=== PATIENT | female | born 1970 | race Caucasian/White ===

== ENCOUNTER 2016-08-10 02:50 | Emergency (ER) | payer MEDICAID, OTHER, SELFPAY ==
[2016-08-10 03:20] VITALS: TEMP 98.8
[2016-08-10 03:33] LABS: HCG,QUALITATIVE URINE NEGATIVE (NEGATIVE)
[2016-08-10 03:35] LABS: URINE COLOR Straw (YELLOW)
[2016-08-10 03:36] LABS: SQUAMOUS EPITHIAL 6 /hpf (0-5); URINE BILIRUBIN NEGATIVE (NEGATIVE); URINE CLARITY Hazy (Clear); URINE GLUCOSE (UA) NORMAL (Normal); URINE LEUKOCYTE ESTERASE 2+ Leu/uL (Negative); URINE NITRATE NEGATIVE (NEGATIVE); URINE PROTEIN NEGATIVE (NEGATIVE); URINE UROBILINOGEN NORMAL mg/dL (0.2-1.0)
[2016-08-10 03:44] LABS: URINE BLOOD NEGATIVE (NEGATIVE)
--- NOTE | 2016-08-10 03:44 | C.PDOC ---
History Of Present Illness <Gunjan Tejada - Last Filed: 08/10/16 06:30> <Jasmyn Lassiter - Last Filed: 08/18/16 04:22> 45 year old female with a history of sciatica presents to the ED with complaints of left intermittent flank pain that woke her a few hours ago with nausea. Patient states the pain radiates to her left lower quadrant. She notes taking excedrin with no improvement. Patient denies urinary symptoms, fever and chills. (Gunjan Tejada) History Per: Patient History/Exam Limitations: no limitations Onset/Duration Of Symptoms: Hrs, Intermittent Episodes Current Symptoms Are (Timing): Still Present Quality Of Discomfort: "Pain" Associated Symptoms: Other (nausea and pain radiates to LLQ ) Recent travel outside of the [place]: No <Gunjan Tejada - Last Filed: 08/10/16 06:30> <Jasmyn Lassiter - Last Filed: 08/18/16 04:22> Time Seen by Provider: 08/10/16 03:21 Chief Complaint (Nursing): Back Pain Past Medical History Reviewed: Historical Data, Nursing Documentation, Vital Signs Family History: States: Unknown Family Hx - Social History Hx Tobacco Use: No Hx Alcohol Use: No Hx Substance Use: No - Immunization History Hx Tetanus Toxoid Vaccination: No Hx Influenza Vaccination: No Hx Pneumococcal Vaccination: No <Gunjan Tejada - Last Filed: 08/10/16 06:30> Review Of Systems Constitutional: Negative for: Fever, Chills Gastrointestinal: Positive for: Nausea, Abdominal Pain (left flank pain radiates to LLQ ). Negative for: Vomiting, Diarrhea Genitourinary: Negative for: Dysuria, Hematuria <Gunjan Tejada - Last Filed: 08/10/16 06:30> Physical Exam <Gunjan Tejada - Last Filed: 08/10/16 06:30> <Jasmyn Lassiter - Last Filed: 08/18/16 04:22> - Physical Exam Additional Physical Exam Comments: Constitutional: No acute distress. WDWN. Patient appears uncomfortable. Head: Normocephalic. Atraumatic. Eyes: PERRL. EOMI. ENT: Moist mucous membranes. Neck: Supple. Cardiovascular: Regular rate and rhythm. Chest: No tenderness. Respiratory: Clear to auscultation bilaterally. GI: Soft. Left lower quardrant tenderness. Nondistended. Normoactive bowel sounds. No rebound. No guarding. Back: Left CVA tenderness. No mid-line tenderness. Musculoskeletal: No tenderness or swelling of extremities. Skin: No rash. Neurologic: Alert, no focal deficit. (Gunjan Tejada) ED Course And Treatment - Laboratory Results Result Diagrams: 08/10/16 04:07 08/10/16 04:07 O2 Sat by Pulse Oximetry: 100 - CT Scan/US CT Abdomen and Pelvis Without Intravenous Contrast Other Rad Studies (CT/US): Read By Radiologist, Radiology Report Reviewed CT/US Interpretation: IMPRESSION: 1. No infiltrate or atelectasis posterior lungs. 2. Hydronephrosis left kidney due to an obstructing 1 cm stone in the left UPJ. 3. Mild fecal retention right colon and distal ileum consistent with constipation. <Gunjan Tejada - Last Filed: 08/10/16 06:30> - Laboratory Results Result Diagrams: 08/10/16 04:07 08/10/16 04:07 <Jasmyn Lassiter - Last Filed: 08/18/16 04:22> Medical Decision Making <Gunjan Tejada - Last Filed: 08/10/16 06:30> <Jasmyn Lassiter - Last Filed: 08/18/16 04:22> Medical Decision Making: pt with sudden onset flank pain that radiates to llq, likely kidney stone. ( Gunjan Tejada) Disposition Counseled Patient/Family Regarding: Studies Performed, Diagnosis, Need For Followup, Rx Given - Disposition Disposition Time: 06:30 <Gunjan Tejada - Last Filed: 08/10/16 06:30> <Jasmyn Lassiter - Last Filed: 08/18/16 04:22> - Disposition Referrals: [facility] [Outside] [facility] [Outside] Clinic,Med Surg [Primary Care Provider] - Maximo Maguire MD [Staff Provider] - Disposition: HOME/ ROUTINE Condition: IMPROVED Additional Instructions: [place] los antibiticos y el ibuprofeno segn lo prescrito. Beber mayores cantidades de agua. Seguimiento con clnica mdica y con urlogo. Colar toda la orina; Guarda la gerard cuando pasa para llevar al urlogo contigo. Vuelva a ER para un dolor peor o cualquier otro sntoma que lo conceda. [place] Miralax para el estreimiento. Prescriptions: Docusate Sodium [Colace] 100 mg PO BID #40 capsule Ibuprofen [Motrin] 600 mg PO TID #30 tab Nitrofurantoin Macrocrystals [Macrobid] 100 mg PO BID #14 cap Instructions: Kidney Stones (ED), Urinary Tract Infection in Women (ED), How to Strain Your Urine (ED) Forms: Gen Discharge Inst Indian Print Language: MAORI - Clinical Impression Clinical Impression: Kidney stone on left side, Urinary tract infection, Constipation - Scribe Statement The provider has reviewed the documentation as recorded by the Scribe <Gunjan Tejada - Last Filed: 08/10/16 06:30> <Jasmyn Lassiter - Last Filed: 08/18/16 04:22> - Scribe Statement Sandra Finley All medical record entries made by the Scribe were at my direction and personally dictated by me. I have reviewed the chart and agree that the record accurately reflects my personal performance of the history, physical exam, medical decision making, and the department course for this patient. I have also personally directed, reviewed, and agree with the discharge instructions and disposition. (Gunjan Tejada)
[2016-08-10] MEDS ORDERED: Sodium Chloride 0.9% 1,000 ML IV SCH (03:45)
[2016-08-10] MEDS ORDERED: Sodium Chloride 0.9% 1,000 ML ONE (04:05)
[2016-08-10 04:13] LABS: MEAN PLATELET VOLUME 8.5 fL (7.2-11.7); MONO # 0.1 K/uL (0.0-0.8); RBC 4.65 Mil/uL (3.80-5.20)
[2016-08-10 04:17] LABS: ALBUMIN 3.9 g/dL (3.5-5.0)
[2016-08-10 04:19] LABS: BASO % 0.3 % (0.0-2.0); EOS # 0.1 K/uL (0.0-0.7); EOS % 0.6 % (0.0-4.0); HEMOGLOBIN 11.2 g/dL (11.0-16.0); LYMPH # 1.3 K/uL (1.0-4.3); LYMPH % 10.7 % (20.0-40.0); MEAN CELL VOLUME 75.5 fL (81.0-99.0); MEAN CORPUSCULAR HEMOGLOBIN 24.1 pg (27.0-31.0); MEAN CORPUSCULAR HGB CONC 31.9 g/dL (33.0-37.0); NEUT % 87.4 % (50.0-75.0); RED CELL DISTRIBUTION WIDTH 17.6 % (11.5-14.5); WHITE BLOOD COUNT 12.6 K/uL (4.8-10.8)
[2016-08-10 04:20] LABS: ALT/SGPT 20 U/L (9-52); AST/SGOT 19 U/L (14-36); BLOOD UREA NITROGEN 12 mg/dL (7-17); GFR AFRICAN-AMERICAN > 60; GFR NON-AFRICAN AMERICAN > 60
[2016-08-10 04:21] LABS: LIPASE 107 U/L (23-300)
[2016-08-10 06:08] VITALS: BP 107/70; PULSE 90; RESP 20
[2016-08-10 06:09] VITALS: O2SAT 100
--- NOTE | 2016-08-10 09:16 | CT ---
PROCEDURE: CT Abdomen and Pelvis without intravenous contrast HISTORY: left flank pain and hematuria COMPARISON: None. TECHNIQUE: Multiple contiguous axial images were performed through the abdomen and pelvis without the use of intravenous contrast. Subsequently, sagittal and coronal reformatted images were obtained. Radiation dose: Total exam DLP = 379 mGy-cm. This CT exam was performed using one or more of the following dose reduction techniques: Automated exposure control, adjustment of the mA and/or kV according to patient size, and/or use of iterative reconstruction technique. FINDINGS: LOWER THORAX: Atelectasis at the lung bases. 3 millimeter fissural nodule in the right lung on series 3, image 6. 2 millimeter nodule/granuloma within the right middle lobe. LIVER: Unremarkable. No gross lesion or ductal dilatation. GALLBLADDER AND BILE DUCTS: Unremarkable. PANCREAS: Unremarkable. No gross lesion or ductal dilatation. SPLEEN: Unremarkable. ADRENALS: Unremarkable. No mass. KIDNEYS AND URETERS: Hydronephrosis of the left kidney secondary to an obstructing 1 centimeter calculus in the left ureteropelvic junction. Additional 7 millimeter lower pole and 6 millimeter midpole nonobstructive calculi. Mild perinephric fluid and fat stranding. 1.2 centimeter upper pole hypoattenuated lesion in the right kidney demonstrating a Hounsfield unit attenuation of 16, indeterminate, possibly a cyst. Question small exophytic hypoattenuated lesion off the upper pole of the left kidney, too small to adequately characterize. VASCULATURE: Unremarkable. No aortic aneurysm. BOWEL: Mild fecal retention in the right hemicolon and distal ileum consistent with constipation. APPENDIX: No findings to suggest acute appendicitis. PERITONEUM: Unremarkable. No free fluid. No free air. LYMPH NODES: Few shotty para-aortic and inguinal lymph nodes. Few shotty mesenteric lymph nodes. BLADDER: Unremarkable. REPRODUCTIVE: Unremarkable. BONES: Degenerative changes in the spine. OTHER FINDINGS: None. IMPRESSION: Hydronephrosis of the left kidney secondary to an obstructing 1 centimeter calculus in the left ureteropelvic junction. Additional left renal calculi as described above. Mild fecal retention in the right colon and distal ileum consistent with constipation. Additional findings as above. These findings were preliminarily reported at 5:38 a.m. on 08/10/[address] Edgar Wallace from [employer] ([place]).
== END 2016-08-10 06:46 | disposition home or self-care (01) ==
LOC: C.ER 02:50 → SUPCPDRO 02:50 → C.ER 06:46
DX: N13.2 Hydronephrosis with renal and ureteral calculous obstruction (principal); N39.0 Urinary tract infection, site not specified; K59.00 Constipation, unspecified
CPT/HCPCS: 74176; 80053; 81001; 83690; 84703; 85025; 96374; 99284; J1885; J7040

== ENCOUNTER 2016-08-12 19:22 | Inpatient (IN) | payer MEDICAID ==
--- NOTE | 2016-08-12 19:52 | C.PDOC ---
History Of Present Illness Patient presents to ED c/o left flank pain radiating to abdomen since monday. Patient seen in ED monday, diagnosed with kidney stone and UTI, discharged home with meds. Patient states pain has not improved and she has been having intermittent fever & chills since monday. She denies chest pain, SOB, vomiting/diarrhea. Admits to occasional dysuria. Time Seen by Provider: 08/12/16 19:33 Chief Complaint (Nursing): Abdominal Pain History Per: Patient History/Exam Limitations: no limitations Onset/Duration Of Symptoms: Days Current Symptoms Are (Timing): Still Present Severity: Moderate Location Of Pain/Discomfort: Other (left flank) Radiation Of Pain To:: Other (left abdomen) Quality Of Discomfort: "Pain" Associated Symptoms: Fever, Chills, Nausea, Urinary Symptoms Abnormal Vaginal Bleeding: No Past Medical History Reviewed: Historical Data, Nursing Documentation, Vital Signs Vital Signs: Last Vital Signs Temp 98 F 08/17/16 12:00 Pulse 72 08/17/16 12:00 Resp 19 08/17/16 12:00 BP 108/65 08/17/16 12:00 Pulse Ox 100 08/17/16 12:00 - Medical History PMH: Back Problems - [facility] Procedures APPLICATION OF SPLINT (12/23/13) Family History: States: No Known Family Hx - Social History Hx Tobacco Use: No Hx Alcohol Use: No Hx Substance Use: No - Immunization History Hx Tetanus Toxoid Vaccination: No Hx Influenza Vaccination: No Hx Pneumococcal Vaccination: No Review Of Systems Except As Marked, All Systems Reviewed And Found Negative. Constitutional: Positive for: Fever, Chills Cardiovascular: Negative for: Chest Pain, Palpitations Respiratory: Negative for: Cough, Shortness of Breath Gastrointestinal: Positive for: Nausea, Abdominal Pain, Other (left flank pain ) . Negative for: Vomiting, Diarrhea Genitourinary: Positive for: Dysuria Skin: Negative for: Rash Physical Exam - Physical Exam Appears: Non-toxic, In Acute Distress (in mild to moderate pain) Skin: Normal Color, Warm, Dry Oral Mucosa: Moist Cardiovascular: Rhythm Regular (tachycardic ) Respiratory: Normal Breath Sounds, No Rales, No Rhonchi, No Wheezing Gastrointestinal/Abdominal: Bowel Sounds, Soft, No Tenderness (L periumbilical/ LLLQ mild TTP) Back: CVA Tenderness (left) Neurological/Psych: Oriented x3 ED Course And Treatment - Laboratory Results Result Diagrams: 08/15/16 12:49 08/15/16 12:49 O2 Sat by Pulse Oximetry: 95 (RA) Pulse Ox Interpretation: Normal Progress Note: Blood work, UA, KUB ordered and reviewed. Patient given IV NS bolus, IV Toradol and IV rocephin. Prior CT scan reviewed - (+) 1cm obstructing stone left sided with hydronephrosis. Patient also had mild UTI, was discharged with macrobid. - Physician Consult Information Physician Contacted: Maximo Maguire Outcome Of Conversation: Discussed patient with Dr. Maguire, agrees with admission to his service for fever, pyelonephritis, kidney stone, hydronephrosis. Disposition - Disposition Disposition: HOSPITALIZED Disposition Time: 20:52 Condition: STABLE - Clinical Impression Clinical Impression: Urinary tract obstruction by kidney stone, Fever, Pyelonephritis, Hydronephrosis Decision To Admit - Pt Status Changed To: Hospital Disposition Of: Inpatient - Admit Certification Admit to Inpatient:: After my assessment, the patient will require hospitalization for at least two midnights. This is because of the severity of symptoms shown, intensity of services needed, and/or the medical risk in this patient being treated as an outpatient. - InPatient: Physician Admission Certification:: see notes - . Bed Request Type: Regular Admitting Physician: Maximo Maguire Patient Diagnosis: Urinary tract obstruction by kidney stone, Fever, Pyelonephritis, Hydronephrosis
[2016-08-12 20:06] LABS: HCG,QUALITATIVE URINE NEGATIVE (NEGATIVE); SQUAMOUS EPITHIAL 19 /hpf (0-5); URINE BACTERIA OCC (<OCC); URINE BILIRUBIN NEGATIVE (NEGATIVE); URINE BLOOD 2+ (NEGATIVE); URINE CLARITY Hazy (Clear); URINE COLOR Yellow (YELLOW); URINE GLUCOSE (UA) NORMAL (Normal); URINE LEUKOCYTE ESTERASE 1+ Leu/uL (Negative); URINE NITRATE NEGATIVE (NEGATIVE); URINE PROTEIN 2+ mg/dL (NEGATIVE)
[2016-08-12 20:06] LABS: BASO % 0.3 % (0.0-2.0); EOS % 0.1 % (0.0-4.0); HEMOGLOBIN 10.7 g/dL (11.0-16.0); LYMPH # 0.8 K/uL (1.0-4.3); LYMPH % 6.5 % (20.0-40.0); MEAN CORPUSCULAR HEMOGLOBIN 23.5 pg (27.0-31.0); MEAN PLATELET VOLUME 8.2 fL (7.2-11.7); MONO # 0.5 K/uL (0.0-0.8); MONO % 4.3 % (0.0-10.0); NEUT # 10.9 K/uL (1.8-7.0); NEUT % 88.8 % (50.0-75.0); RBC 4.55 Mil/uL (3.80-5.20); RED CELL DISTRIBUTION WIDTH 17.6 % (11.5-14.5); WHITE BLOOD COUNT 12.2 K/uL (4.8-10.8)
[2016-08-12 20:08] LABS: MEAN CELL VOLUME 73.3 fL (81.0-99.0); PLATELET COUNT 209 K/uL (130-400)
[2016-08-12] MEDS ORDERED: cefTRIAXone IV 1 gm in Dextros 50 ML IVPB ONE (20:08)
[2016-08-12 20:14] LABS: ALBUMIN 3.5 g/dL (3.5-5.0)
[2016-08-12 20:17] LABS: ALB/GLOB RATIO 0.8 (1.0-2.1); CALCIUM 8.5 mg/dl (8.6-10.4)
[2016-08-12 20:25] LABS: VENOUS BLOOD GAS PCO2 25 mmHg (40-60); VENOUS BLOOD GAS PO2 34 mm/Hg (30-55); VENOUS BLOOD PH 7.43 (7.32-7.43)
[2016-08-12 20:41] LABS: BANDS 3 % (0-2); LYMPHOCYTE 5 % (20-40); MONOCYTE 3 % (0-10); NEUTROPHIL 89 % (50-75); TOTAL CELLS COUNTED 100
[2016-08-12 20:42] LABS: ANISOCYTOSIS SLIGHT; MICROCYTOSIS SLIGHT; PLATELET ESTIMATE NORMAL (NORMAL)
[2016-08-13] MEDS: Potassium Chloride 20 mEq ER Tab PO SCH ×2 (02:30→03:36)
--- NOTE | 2016-08-13 10:55 | RAD ---
HISTORY: KUB FOR KIDNEY STONE COMPARISON: No prior. FINDINGS: Examination is severely limited as bilateral renal silhouette are obscured by bowel gas and fecal material. BOWEL: There is large amount of stool in the right hemicolon. Gas filled bowel loops are noted in the left abdomen. BONES: Normal. OTHER FINDINGS: None. IMPRESSION: Suboptimal diagnostic quality and bilateral renal silhouette are obscured by bowel gas and recall material.
[2016-08-13 12:35] LABS: BASO % 0.4 % (0.0-2.0); EOS % 0.3 % (0.0-4.0); HEMOGLOBIN 11.2 g/dL (11.0-16.0); LYMPH # 1.2 K/uL (1.0-4.3); LYMPH % 18.4 % (20.0-40.0); MEAN CELL VOLUME 75.4 fL (81.0-99.0); MEAN CORPUSCULAR HEMOGLOBIN 24.1 pg (27.0-31.0); MEAN CORPUSCULAR HGB CONC 31.9 g/dL (33.0-37.0); MEAN PLATELET VOLUME 8.6 fL (7.2-11.7); MONO # 0.3 K/uL (0.0-0.8); MONO % 3.9 % (0.0-10.0); NEUT # 5.2 K/uL (1.8-7.0); NRBC % 0.1 % (0.0-2.0); RBC 4.67 Mil/uL (3.80-5.20); RED CELL DISTRIBUTION WIDTH 17.8 % (11.5-14.5); WHITE BLOOD COUNT 6.7 K/uL (4.8-10.8)
[2016-08-13] MEDS ORDERED: Vancomycin 1 gm/NS 200 ml 1 GM/200 ML BAG IVPB STA (12:41)
[2016-08-13 12:46] LABS: ALBUMIN 3.8 g/dL (3.5-5.0)
[2016-08-13 12:49] LABS: ALB/GLOB RATIO 0.8 (1.0-2.1)
[2016-08-13 12:50] LABS: CALCIUM 8.7 mg/dl (8.6-10.4)
[2016-08-13] MEDS ORDERED: Propofol 10 mg/ml Inj (20 ML) ONE (13:41)
[2016-08-13] MEDS ORDERED: Midazolam 2 MG/2 ML VIAL ONE (13:41)
[2016-08-13] MEDS ORDERED: Sodium Chloride 0.9% 1,000 ML IV SCH ×2 (13:45→21:15)
[2016-08-13] MEDS ORDERED: Lactated Ringer's 1,000 ML IV ONE (14:14)
[2016-08-13] MEDS ORDERED: HYDROmorphone 0.5 mg/0.5 ml ISec IVP PRN (14:25)
[2016-08-13] MEDS ORDERED: Sodium Chloride 0.9% 1,000 ML IV ONE (15:15)
--- NOTE | 2016-08-13 20:14 | RAD ---
HISTORY: LEFT HYDRONEPHROSIS COMPARISON: No prior. FINDINGS: BOWEL: There are gas-filled small bowel loops in the mid abdomen. No evidence of bowel dilatation or obstruction. BONES: Normal. OTHER FINDINGS: None. IMPRESSION: Gas-filled normal caliber small bowel loops in the mid abdomen. No evidence of bowel obstruction.
[2016-08-13 21:19] LABS: MAGNESIUM 2.1 mg/dL (1.6-2.3)
[2016-08-14 06:29] LABS: HEMOGLOBIN 9.5 g/dL (11.0-16.0); MEAN CORPUSCULAR HEMOGLOBIN 24.1 pg (27.0-31.0); MEAN CORPUSCULAR HGB CONC 32.1 g/dL (33.0-37.0); MEAN PLATELET VOLUME 9.1 fL (7.2-11.7); RBC 3.93 Mil/uL (3.80-5.20); RED CELL DISTRIBUTION WIDTH 18.3 % (11.5-14.5); WHITE BLOOD COUNT 9.8 K/uL (4.8-10.8)
[2016-08-14 06:50] LABS: ALBUMIN 2.8 g/dL (3.5-5.0)
[2016-08-14 06:53] LABS: ALB/GLOB RATIO 0.8 (1.0-2.1); AST/SGOT 21 U/L (14-36); GFR AFRICAN-AMERICAN > 60; GFR NON-AFRICAN AMERICAN > 60
[2016-08-14 06:54] LABS: ALT/SGPT 20 U/L (9-52); BLOOD UREA NITROGEN 12 mg/dL (7-17); CALCIUM 7.6 mg/dl (8.6-10.4); MAGNESIUM 1.9 mg/dL (1.6-2.3)
--- NOTE | 2016-08-14 08:58 | CP.PCM.CON ---
History of Present Illness - History of Present Illness History of Present Illness: 3 Consult note Patient name: Vanessa Cardona [id number] Date of consult 08/13/2016 Chief complaint: Fevers chills History present illness: 45-year-old female with a history of hyperlipidemia, prediabetic came to the emergency room yesterday with the abdominal pain. Patient was sent home. At the time patient was noted to have renal colic. Patient admitted again with the worsening abdominal pain, and also nausea fever chills. Patient was admitted to the medical floor initially, she developed a very high fever, chills, and also noted to have a 1 cm renal calculi need a surgical intervention. Following the rapid response this morning, patient underwent is urgent cystoscopy, and urethral stenting Postoperatively patient needed ICU management. She again developed a very high fever during the postoperative to PACU. Patient is also hypertensive. Denies any chest pain, no shortness of breath noted, currently awake and responding Past medical history: Hypertension negative, prediabetic, hypercholesteremia and the sciatica Allergy: No known drug allergy Consult note Patient name: Vanessa Cardona [id number] Date of consult 08/13/2016 Personal history: Nonsmoker nonalcoholic currently working Family history noncontributory Review of system: Patient is currently having some headache, nausea noted, vomiting and chills noted. Abdominal pain present. Patient postoperatively chills present. Carbajal catheter inserted, urine output is better Past surgical history none Vital signs reviewed No neck vein distention noted Chest good air entry bilaterally, no wheezing or rales noted CVS regular heart sound, no murmur noted Abdomen soft, nontender. Extremities no pedal edema FREELANCE DIRECTOR alert awake oriented 3, no functional neurological deficit Carbajal catheter is draining urine Consult note Patient name: Vanessa Cardona [id number] Date of consult 08/13/2016 Labs reviewed Elevated WBC noted, minimal blood in the urine noted. Chest x-ray nonspecific. CT of the abdomen and pelvis showing evidence of renal colic, status post a urethral stent now Assessment and recommendation: 45-year-old female admitted with the severe sepsis, and high fever, secondary to ureteral obstruction secondary to renal colic AP Currently improving. Doing well at this time. Well continue to monitor the patient. Well follow the patient. IV hydration, IV fluid management. Antibiotic imipenem. Spoke to the urologist. And will follow the patient Past Patient History - Infectious Disease Hx of Infectious Diseases: None - Past Medical History & Family History Past Medical History?: No - Past Social History Smoking Status: Never Smoked - ENDOCRINE/METABOLIC Other/Comment: pre diabetics - MUSCULOSKELETAL/RHEUMATOLOGICAL Hx Falls: No - GENITOURINARY/GYNECOLOGICAL Other/Comment: kidney stones - PSYCHIATRIC Hx Substance Use: No - SURGICAL HISTORY Hx Surgeries: No - ANESTHESIA Hx Anesthesia: No Meds Allergies/Adverse Reactions: Allergies Allergy/AdvReac Type Severity Reaction Status Date / Time No Known Allergies Allergy Verified 12/23/13 12:54 - Medications Medications: Current Medications Famotidine (Pepcid) 20 mg IVP Q12 [facility] Last Admin: 08/13/16 21:39 Dose: 20 mg Heparin Sodium (Porcine) (Heparin) 5,000 units SC Q12 [facility] Last Admin: 08/13/16 21:39 Dose: 5,000 units Vancomycin/Sodium Chloride (Vancocin) 1 gm in 200 mls @ 66.667 mls/hr IVPB Q24H [facility] Stop: 08/19/16 14:01 Imipenem/Cilastatin Sodium 500 (mg/ Sodium Chloride) 100 mls @ 100 mls/hr IV Q6H [facility] Last Admin: 08/14/16 05:40 Dose: 100 mls/hr Sodium Chloride (Sodium Chloride 0.9%) 1,000 mls @ 250 mls/hr IV .Q4H [facility] Last Admin: 08/13/16 21:40 Dose: 250 mls/hr Ketorolac Tromethamine (Toradol) 30 mg IVP Q8H PRN PRN Reason: Pain, moderate (4-7) Morphine Sulfate (Morphine) 4 mg IVP Q4 PRN PRN Reason: pain Last Admin: 08/13/16 03:27 Dose: 4 mg Ondansetron HCl (Zofran Inj) 4 mg IVP Q8H PRN PRN Reason: Nausea/Vomiting Potassium Chloride (K-Dur 20 Meq Er Tab) 40 meq PO ONCE DANA Last Admin: 08/13/16 02:30 Dose: 40 meq Results - Vital Signs Recent Vital Signs: Last Vital Signs Temp 97.7 F 08/14/16 08:00 Pulse 76 08/14/16 08:50 Resp 17 08/14/16 08:50 BP 98/62 L 08/14/16 08:35 Pulse Ox 100 08/14/16 08:50 - Labs Result Diagrams: 08/14/16 06:15 08/14/16 06:15 Labs: Laboratory Results - last 24 hr 08/13/16 08/13/16 08/13/16 12:02 12:27 12:30 WBC 6.7 RBC 4.67 Hgb 11.2 Hct 35.2 MCV 75.4 L D MCH 24.1 L MCHC 31.9 L RDW 17.8 H Plt Count 180 MPV 8.6 Neut % (Auto) 77.0 H Lymph % (Auto) 18.4 L [place] % (Auto) 3.9 Eos % (Auto) 0.3 Baso % (Auto) 0.4 Neut # 5.2 Lymph # 1.2 [place] # 0.3 Eos # 0.0 Baso # 0.0 Sodium 135 Potassium 4.5 Chloride 100 Carbon Dioxide 18 L Anion Gap 22 H BUN 15 Creatinine 1.2 Est GFR ( Amer) 59 Est GFR (Non-Af Amer) 49 POC Glucose (mg/dL) 108 Random Glucose 107 H Lactic Acid Calcium 8.7 Phosphorus Magnesium Total Bilirubin 0.9 AST 26 ALT 21 Alkaline Phosphatase 155 H Total Protein 8.3 Albumin 3.8 Globulin 4.5 H Albumin/Globulin Ratio 0.8 L 08/13/16 08/13/16 08/14/16 12:30 20:46 06:15 WBC 9.8 RBC 3.93 Hgb 9.5 L Hct 29.5 L MCV 75.0 L MCH 24.1 L MCHC 32.1 L RDW 18.3 H Plt Count 175 MPV 9.1 Neut % (Auto) Lymph % (Auto) [place] % (Auto) Eos % (Auto) Baso % (Auto) Neut # Lymph # [place] # Eos # Baso # Sodium Potassium Chloride Carbon Dioxide Anion Gap BUN Creatinine Est GFR ( Amer) Est GFR (Non-Af Amer) POC Glucose (mg/dL) Random Glucose Lactic Acid 3.5 H Calcium Phosphorus 4.1 Magnesium 2.1 Total Bilirubin AST ALT Alkaline Phosphatase Total Protein Albumin Globulin Albumin/Globulin Ratio 08/14/16 06:15 WBC RBC Hgb Hct MCV MCH MCHC RDW Plt Count MPV Neut % (Auto) Lymph % (Auto) [place] % (Auto) Eos % (Auto) Baso % (Auto) Neut # Lymph # [place] # Eos # Baso # Sodium 141 Potassium 3.6 Chloride 108 H Carbon Dioxide 22 Anion Gap 15 BUN 12 Creatinine 0.7 Est GFR ( Amer) > 60 Est GFR (Non-Af Amer) > 60 POC Glucose (mg/dL) Random Glucose 83 Lactic Acid Calcium 7.6 L Phosphorus 2.8 Magnesium 1.9 Total Bilirubin 0.6 AST 21 ALT 20 Alkaline Phosphatase 98 Total Protein 6.3 Albumin 2.8 L D Globulin 3.4 Albumin/Globulin Ratio 0.8 L
[2016-08-14] MEDS ORDERED: Potassium Chloride 20 mEq/15 ml LIQ UD PO ONE (09:01)
--- NOTE | 2016-08-14 09:05 | CP.CCUPN ---
CCU Subjective - Physician Review Events Since Last Encounter (Free Text): 08/14/16 09:05 45-year-old female admitted to the hospital with the acute renal colic. Status post a stent. Severe sepsis. Possible gram-negative. Currently having no fever, improving. Urine output is better. Patient has a Carbajal catheter. Awake and responding. Not in any distress. No abdominal pain. Vital signs reviewed No neck vein distention noted Chest good air entry bilaterally, no wheezing or rales noted CVS regular heart sound, no murmur noted Abdomen soft, nontender. 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 Hypertension mildly But stable at this time, severe sepsis, renal colic, status post a stent. Patient is currently stable, we'll transfer the patient to the regular medical floor. CCU Objective - Vital Signs / Intake & Output Vital Signs (Last 4 hours): Vital Signs Temp Pulse Resp BP Pulse Ox 08/14/16 08:50 76 17 100 08/14/16 08:40 76 16 100 08/14/16 08:35 78 18 98/62 L 99 08/14/16 08:30 76 17 100 08/14/16 08:20 85 21 100 08/14/16 08:10 85 22 100 08/14/16 08:00 97.7 F 76 17 100 08/14/16 07:50 77 16 100 08/14/16 07:40 88 22 100 08/14/16 07:35 84 24 104/66 100 08/14/16 07:30 87 21 100 08/14/16 07:20 74 17 100 08/14/16 07:10 76 17 100 08/14/16 07:00 73 17 100 08/14/16 06:50 80 17 100 08/14/16 06:40 78 18 100 08/14/16 06:35 81 19 109/68 100 08/14/16 06:30 80 16 100 08/14/16 06:20 80 18 100 08/14/16 06:10 78 18 100 08/14/16 06:00 76 19 100 08/14/16 05:50 85 17 100 08/14/16 05:40 88 15 99 08/14/16 05:35 78 14 102/66 100 07/02/17 05:30 79 16 100 08/14/16 05:20 86 20 100 08/14/16 05:10 77 17 100 Intake and Output (Last 8hrs): Intake & Output 08/13/16 08/14/16 08/14/16 22:59 06:59 14:59 Intake Total 975 125 Output Total 435 550 Balance 540 -425 Intake: Intake, IV Amount 975 125 Right Forearm 975 125 Oral 0 Output: Urine 435 550 Urine, Voided 435 550 - Medications Active Medications: Active Medications Generic Name Dose Route Start Last Admin Trade Name Freq PRN Reason Stop Dose Admin Famotidine 20 mg 08/13/16 22:00 08/13/16 21:39 Pepcid IVP 20 mg Q12 DANA Administration Heparin Sodium (Porcine) 5,000 units 08/13/16 22:00 08/13/16 21:39 Heparin SC 5,000 units Q12 DANA Administration Imipenem/Cilastatin Sodium 500 100 mls @ 100 mls/hr 08/13/16 18:00 08/14/16 05:40 mg/ Sodium Chloride IV 100 mls/hr Q6H DANA Administration Sodium Chloride 1,000 mls @ 150 mls/hr 08/14/16 09:02 Sodium Chloride 0.9% IV .Q6H40M DANA Ketorolac Tromethamine 30 mg 08/13/16 21:14 Toradol IVP Q8H PRN Pain, moderate (4-7) Morphine Sulfate 4 mg 08/12/16 20:55 08/13/16 03:27 Morphine IVP 4 mg Q4 PRN Administration pain Ondansetron HCl 4 mg 08/13/16 21:13 Zofran Inj IVP Q8H PRN Nausea/Vomiting Potassium Chloride 40 meq 08/13/16 02:30 08/13/16 02:30 K-Dur 20 Meq Er Tab PO 40 meq ONCE DANA Administration Potassium Chloride 40 meq 08/14/16 09:01 Potassium Chloride Oral Soln PO 08/14/16 09:02 ONCE ONE - Patient Studies Lab Studies: Lab Studies 08/14/16 08/14/16 08/13/16 Range/Units 06:15 06:15 20:46 WBC 9.8 (4.8-10.8) K/uL RBC 3.93 (3.80-5.20) Mil/uL Hgb 9.5 L (11.0-16.0) g/dL Hct 29.5 L (34.0-47.0) % MCV 75.0 L (81.0-99.0) fL MCH 24.1 L (27.0-31.0) pg MCHC 32.1 L (33.0-37.0) g/dL RDW 18.3 H (11.5-14.5) % Plt Count 175 (130-400) K/uL MPV 9.1 (7.2-11.7) fL Neut % (Auto) (50.0-75.0) % Lymph % (Auto) (20.0-40.0) % [place] % (Auto) (0.0-10.0) % Eos % (Auto) (0.0-4.0) % Baso % (Auto) (0.0-2.0) % Neut # (1.8-7.0) K/uL Lymph # (1.0-4.3) K/uL [place] # (0.0-0.8) K/uL Eos # (0.0-0.7) K/uL Baso # (0.0-0.2) K/uL Sodium 141 (132-148) mmol/L Potassium 3.6 (3.6-5.2) mmol/L Chloride 108 H (98-107) mmol/L Carbon Dioxide 22 (22-30) mmol/L Anion Gap 15 (10-20) BUN 12 (7-17) mg/dL Creatinine 0.7 (0.7-1.2) MG/DL Est GFR ( Amer) > 60 Est GFR (Non-Af Amer) > 60 POC Glucose (mg/dL) (65-110) mg/dL Random Glucose 83 (65-105) mg/dL Lactic Acid (0.7-2.1) mmol/L Calcium 7.6 L (8.6-10.4) mg/dl Phosphorus 2.8 4.1 (2.5-4.5) mg/dL Magnesium 1.9 2.1 (1.6-2.3) mg/dL Total Bilirubin 0.6 (0.2-1.3) mg/dL AST 21 (14-36) U/L ALT 20 (9-52) U/L Alkaline Phosphatase 98 (38-126) U/L Total Protein 6.3 (6.3-8.3) g/dL Albumin 2.8 L D (3.5-5.0) g/dL Globulin 3.4 (2.2-3.9) gm/dL Albumin/Globulin Ratio 0.8 L (1.0-2.1) 08/13/16 08/13/16 08/13/16 Range/Units 12:30 12:30 12:27 WBC 6.7 (4.8-10.8) K/uL RBC 4.67 (3.80-5.20) Mil/uL Hgb 11.2 (11.0-16.0) g/dL Hct 35.2 (34.0-47.0) % MCV 75.4 L D (81.0-99.0) fL MCH 24.1 L (27.0-31.0) pg MCHC 31.9 L (33.0-37.0) g/dL RDW 17.8 H (11.5-14.5) % Plt Count 180 (130-400) K/uL MPV 8.6 (7.2-11.7) fL Neut % (Auto) 77.0 H (50.0-75.0) % Lymph % (Auto) 18.4 L (20.0-40.0) % [place] % (Auto) 3.9 (0.0-10.0) % Eos % (Auto) 0.3 (0.0-4.0) % Baso % (Auto) 0.4 (0.0-2.0) % Neut # 5.2 (1.8-7.0) K/uL Lymph # 1.2 (1.0-4.3) K/uL [place] # 0.3 (0.0-0.8) K/uL Eos # 0.0 (0.0-0.7) K/uL Baso # 0.0 (0.0-0.2) K/uL Sodium 135 (132-148) mmol/L Potassium 4.5 (3.6-5.2) mmol/L Chloride 100 (98-107) mmol/L Carbon Dioxide 18 L (22-30) mmol/L Anion Gap 22 H (10-20) BUN 15 (7-17) mg/dL Creatinine 1.2 (0.7-1.2) MG/DL Est GFR ( Amer) 59 Est GFR (Non-Af Amer) 49 POC Glucose (mg/dL) (65-110) mg/dL Random Glucose 107 H (65-105) mg/dL Lactic Acid 3.5 H (0.7-2.1) mmol/L Calcium 8.7 (8.6-10.4) mg/dl Phosphorus (2.5-4.5) mg/dL Magnesium (1.6-2.3) mg/dL Total Bilirubin 0.9 (0.2-1.3) mg/dL AST 26 (14-36) U/L ALT 21 (9-52) U/L Alkaline Phosphatase 155 H (38-126) U/L Total Protein 8.3 (6.3-8.3) g/dL Albumin 3.8 (3.5-5.0) g/dL Globulin 4.5 H (2.2-3.9) gm/dL Albumin/Globulin Ratio 0.8 L (1.0-2.1) 08/13/16 Range/Units 12:02 WBC (4.8-10.8) K/uL RBC (3.80-5.20) Mil/uL Hgb (11.0-16.0) g/dL Hct (34.0-47.0) % MCV (81.0-99.0) fL MCH (27.0-31.0) pg MCHC (33.0-37.0) g/dL RDW (11.5-14.5) % Plt Count (130-400) K/uL MPV (7.2-11.7) fL Neut % (Auto) (50.0-75.0) % Lymph % (Auto) (20.0-40.0) % [place] % (Auto) (0.0-10.0) % Eos % (Auto) (0.0-4.0) % Baso % (Auto) (0.0-2.0) % Neut # (1.8-7.0) K/uL Lymph # (1.0-4.3) K/uL [place] # (0.0-0.8) K/uL Eos # (0.0-0.7) K/uL Baso # (0.0-0.2) K/uL Sodium (132-148) mmol/L Potassium (3.6-5.2) mmol/L Chloride (98-107) mmol/L Carbon Dioxide (22-30) mmol/L Anion Gap (10-20) BUN (7-17) mg/dL Creatinine (0.7-1.2) MG/DL Est GFR ( Amer) Est GFR (Non-Af Amer) POC Glucose (mg/dL) 108 (65-110) mg/dL Random Glucose (65-105) mg/dL Lactic Acid (0.7-2.1) mmol/L Calcium (8.6-10.4) mg/dl Phosphorus (2.5-4.5) mg/dL Magnesium (1.6-2.3) mg/dL Total Bilirubin (0.2-1.3) mg/dL AST (14-36) U/L ALT (9-52) U/L Alkaline Phosphatase (38-126) U/L Total Protein (6.3-8.3) g/dL Albumin (3.5-5.0) g/dL Globulin (2.2-3.9) gm/dL Albumin/Globulin Ratio (1.0-2.1) Laboratory Results - last 24 hr 08/13/16 08/13/16 08/13/16 12:02 12:27 12:30 WBC 6.7 RBC 4.67 Hgb 11.2 Hct 35.2 MCV 75.4 L D MCH 24.1 L MCHC 31.9 L RDW 17.8 H Plt Count 180 MPV 8.6 Neut % (Auto) 77.0 H Lymph % (Auto) 18.4 L [place] % (Auto) 3.9 Eos % (Auto) 0.3 Baso % (Auto) 0.4 Neut # 5.2 Lymph # 1.2 [place] # 0.3 Eos # 0.0 Baso # 0.0 Sodium 135 Potassium 4.5 Chloride 100 Carbon Dioxide 18 L Anion Gap 22 H BUN 15 Creatinine 1.2 Est GFR ( Amer) 59 Est GFR (Non-Af Amer) 49 POC Glucose (mg/dL) 108 Random Glucose 107 H Lactic Acid Calcium 8.7 Phosphorus Magnesium Total Bilirubin 0.9 AST 26 ALT 21 Alkaline Phosphatase 155 H Total Protein 8.3 Albumin 3.8 Globulin 4.5 H Albumin/Globulin Ratio 0.8 L 08/13/16 08/13/16 08/14/16 12:30 20:46 06:15 WBC 9.8 RBC 3.93 Hgb 9.5 L Hct 29.5 L MCV 75.0 L MCH 24.1 L MCHC 32.1 L RDW 18.3 H Plt Count 175 MPV 9.1 Neut % (Auto) Lymph % (Auto) [place] % (Auto) Eos % (Auto) Baso % (Auto) Neut # Lymph # [place] # Eos # Baso # Sodium Potassium Chloride Carbon Dioxide Anion Gap BUN Creatinine Est GFR ( Amer) Est GFR (Non-Af Amer) POC Glucose (mg/dL) Random Glucose Lactic Acid 3.5 H Calcium Phosphorus 4.1 Magnesium 2.1 Total Bilirubin AST ALT Alkaline Phosphatase Total Protein Albumin Globulin Albumin/Globulin Ratio 08/14/16 06:15 WBC RBC Hgb Hct MCV MCH MCHC RDW Plt Count MPV Neut % (Auto) Lymph % (Auto) [place] % (Auto) Eos % (Auto) Baso % (Auto) Neut # Lymph # [place] # Eos # Baso # Sodium 141 Potassium 3.6 Chloride 108 H Carbon Dioxide 22 Anion Gap 15 BUN 12 Creatinine 0.7 Est GFR ( Amer) > 60 Est GFR (Non-Af Amer) > 60 POC Glucose (mg/dL) Random Glucose 83 Lactic Acid Calcium 7.6 L Phosphorus 2.8 Magnesium 1.9 Total Bilirubin 0.6 AST 21 ALT 20 Alkaline Phosphatase 98 Total Protein 6.3 Albumin 2.8 L D Globulin 3.4 Albumin/Globulin Ratio 0.8 L Critical Care Progress Note - Nutrition Nutrition: Nutrition Category Date Time Status NPO Diet [DIET] Diets 08/12/16 Breakfast Active Regular Diet [DIET] Diets 08/14/16 Dinner Ordered
[2016-08-14] MEDS: Sodium Chloride 0.9% 1,000 ML IV SCH ×3 (09:30→22:30)
[2016-08-14] MEDS ORDERED: Vancomycin 1 gm/NS 200 ml 1 GM/200 ML BAG IVPB SCH (14:00)
[2016-08-15] MEDS: Sodium Chloride 0.9% 1,000 ML IV SCH ×3 (05:34→17:44)
[2016-08-15 11:50] LABS: SQUAMOUS EPITHIAL 1 /hpf (0-5); URINE BACTERIA RARE (<OCC); URINE BILIRUBIN NEGATIVE (NEGATIVE); URINE BLOOD 3+ (NEGATIVE); URINE COLOR Straw (YELLOW); URINE GLUCOSE (UA) 2+ mg/dL (Normal); URINE LEUKOCYTE ESTERASE 3+ Leu/uL (Negative); URINE NITRATE NEGATIVE (NEGATIVE); URINE PROTEIN NEGATIVE (NEGATIVE); URINE UROBILINOGEN NORMAL mg/dL (0.2-1.0)
[2016-08-15 11:52] LABS: URINE CLARITY SLHAZY (Clear)
[2016-08-15 12:55] LABS: BASO % 0.4 % (0.0-2.0); EOS # 0.1 K/uL (0.0-0.7); EOS % 0.8 % (0.0-4.0); HEMOGLOBIN 10.1 g/dL (11.0-16.0); LYMPH # 2.1 K/uL (1.0-4.3); LYMPH % 17.6 % (20.0-40.0); MEAN CELL VOLUME 74.1 fL (81.0-99.0); MEAN CORPUSCULAR HEMOGLOBIN 23.5 pg (27.0-31.0); MEAN CORPUSCULAR HGB CONC 31.7 g/dL (33.0-37.0); MEAN PLATELET VOLUME 8.4 fL (7.2-11.7); MONO # 1.1 K/uL (0.0-0.8); MONO % 9.8 % (0.0-10.0); NEUT # 8.3 K/uL (1.8-7.0); NEUT % 71.4 % (50.0-75.0); RBC 4.29 Mil/uL (3.80-5.20); RED CELL DISTRIBUTION WIDTH 18.2 % (11.5-14.5); WHITE BLOOD COUNT 11.7 K/uL (4.8-10.8)
[2016-08-15 12:59] LABS: ALBUMIN 3.2 g/dL (3.5-5.0)
[2016-08-15 13:02] LABS: GFR AFRICAN-AMERICAN > 60; GFR NON-AFRICAN AMERICAN > 60
[2016-08-15 13:03] LABS: ALB/GLOB RATIO 0.8 (1.0-2.1); ALT/SGPT 21 U/L (9-52); AST/SGOT 21 U/L (14-36); BLOOD UREA NITROGEN 8 mg/dL (7-17); CALCIUM 8.4 mg/dl (8.6-10.4)
[2016-08-15 13:04] LABS: MAGNESIUM 1.7 mg/dL (1.6-2.3)
--- NOTE | 2016-08-15 14:10 | CP.PCM.CON ---
History of Present Illness - History of Present Illness History of Present Illness: 45-year-old female with a history of hyperlipidemia, prediabetic came to the emergency room yesterday with the abdominal pain. Patient was sent home. At the time patient was noted to have renal colic. Patient admitted again with the worsening abdominal pain, and also nausea fever chills. Patient was admitted to the medical floor initially, she developed a very high fever, chills, and also noted to have a 1 cm renal calculi need a surgical intervention. Following the rapid response this morning, patient underwent is urgent cystoscopy, and urethral stenting Postoperatively patient needed ICU management. Found to have ESBL + Gram neg sepsis- strated on Primaxin ID consulted Past medical history: Hypertension negative, prediabetic, hypercholesteremia and the sciatica Allergy: No known drug allergy Personal history: Nonsmoker nonalcoholic currently working Family history noncontributory Past surgical history none Review of Systems - Constitutional Constitutional: As Per HPI, Chills, Fever - EENT Eyes: absent: As Per HPI, Blind Spots, Blurred Vision, Change in Vision, Decreased Night Vision, Diplopia, Discharge, Dry Eye, Exophthalmos, Floaters, Irritation, Itchy Eyes, Loss of Peripheral Vision, Pain, Photophobia, Requires Corrective Lenses, Sees Flashes, Spots in Vision, Tunnel Vision, Other Visual Disturbances, Loss of Vision, Other Ears: absent: As Per HPI, Decreased Hearing, Ear Discharge, Ear Pain, Tinnitus, Abnormal Hearing, Disequilibrium, Dizziness, Other Nose/Mouth/Throat: absent: As Per HPI, Epistaxis, Nasal Congestion, Nasal Discharge, Nasal Obstruction, Nasal Trauma, Nose Pain, Post Nasal Drip, Sinus Pain, Sinus Pressure, Bleeding Gums, Change in Voice, Dental Pain, Dry Mouth, Dysphagia, Halitosis, Hoarsness, Lip Swelling, Mouth Lesions, Mouth Pain, Odynophagia, Sore Throat, Throat Swelling, Tongue Swelling, Facial Pain, Neck Pain, Neck Mass, Other - Breasts Breasts: absent: As Per HPI, Change in Shape, Mass, Pain, Nipple Discharge, Nipple Inversion, Skin Changes, Swelling, Other - Cardiovascular Cardiovascular: absent: As Per HPI, Acrocyanosis, Chest Pain, Chest Pain at Rest , Chest Pain with Activity, Claudication, Diaphoresis, Dyspnea, Dyspnea on Exertion, Edema, Irregular Heart Rhythm, Pain Radiating to Arm/Neck/Jaw, Leg Edema, Leg Ulcers, Lightheadedness, Orthopnea, Palpitations, Paroxysmal Nocturnal Dyspnea, Pedal Edema, Radiating Pain, Rapid Heart Rate, Slow Heart Rate, Syncope, Other - Respiratory Respiratory: absent: As Per HPI, Cough, Dyspnea, Hemoptysis, Dyspnea on Exertion , Wheezing, Snoring, Stridor, Pain on Inspiration, Chest Congestion, Excessive Mucous Production, Change in Mucous Color, Pain with Coughing, Other - Gastrointestinal Gastrointestinal: absent: As Per HPI, Abdominal Pain, Belching, Bloating, Change in Bowel Habits, Change in Stool Character, Coffee Ground Emesis, Constipation, Cramping, Diarrhea, Dyspepsia, Dysphagia, Early Satiety, Excessive Flatus, Fecal Incontinence, Heartburn, Hematemesis, Hematochezia, Loose Stools, Melena, Nausea, Odynophagia, Temesmus, Vomiting, Other - Genitourinary Genitourinary: As Per HPI - Reproductive: Female Reproductive:Female: absent: As Per HPI, Amenorrhea, Amenorrhea/ Control, Currently Menstual, Cycle <21 Days, Cycle >35 Days, Cycle Variable, Menses 1-7 Days, Menses >/= 8 Days, Menses Variable, Cycle > 4 Weeks Between, No Menses for 6 Months, Heavy Menses, Light Menses, Normal Menses, Spotting Between Cycles , S/P Hysterectomy, Menopausal, Post Menopausal, Premenarche, Abnormal Vaginal Bleeding, Dysmenorrhea, Dyspareunia, Genital Lesions, Genital Pruritis, Pelvic Pain, Prolapse Symptoms, Sexual Dysfunction, Vaginal Discharge, Vaginal Dryness , Vaginal Odor, Vaginal Pruritis, Other - Menstruation Menstruation: absent: As Per HPI, Amenorrhea, Amenorrhea/ Control, Currently Menstual, Cycle <21 Days, Cycle >35 Days, Cycle Variable, Menses 1-7 Days, Menses >/= 8 Days, Menses Variable, Cycle > 4 Weeks Between, No Menses for 6 Months, Heavy Menses, Light Menses, Normal Menses, Spotting Between Cycles , S/P Hysterectomy, Menopausal, Post Menopausal, Premenarche, Abnormal Vaginal Bleeding, Dysmenorrhea, Other - Musculoskeletal Musculoskeletal: absent: As Per HPI, Abnormal Gait, Arthralgias, Atrophy, Back Pain, Deformity, Joint Swelling, Limited Range of Motion, Loss of Height, Muscle Cramps, Muscle Weakness, Myalgias, Neck Pain, Numbness, Radiating Pain into Limb, Stiffness, Tingling, Other - Integumentary Integumentary: absent: As Per HPI, Acne, Alopecia, Bleeding Lesions, Change in Hair, Change in Nails, Change in Pigmentation, Changing Lesions, Dry Skin, Erythema, Furuncle, Hirsutism, Lesions, New Lesions, Non-Healing Lesions, Photosensitivity, Pruritus, Rash, Skin Pain, Skin Ulcer, Sores, Striae, Swelling , Unusual Bruising, Wounds, Jaundice, Other - Neurological Neurological: absent: As Per HPI, Abnormal Gait, Abnormal Hearing, Abnormal Movements, Abnormal Speech, Behavioral Changes, Burning Sensations, Confusion, Convulsions, Disequilibrium, Dizziness, Numbness, Focal Weakness, Frequent Falls , Headaches, Lack of Coordination, Loss of Vision, Memory Loss, Paresthesias, Radicular Pain, Restless Legs, Sensory Deficit, Syncope, Tingling, Tremor, Vertigo, Weakness, Other Visual Disturbances, Other - Psychiatric Psychiatric: absent: As Per HPI, Abnormal Sleep Pattern, Anhedonia, Anxiety, Auditory Hallucinations, Behavioral Changes, Change in Appetite, Change in Libido, Confusion, Depression, Difficulty Concentrating, Hallucinations, Homicidal Ideation, Hopelessness, Irritability, Memory Loss, Mood Swings, Panic Attacks, Paranoia, Suicidal Ideation, Visual Hallucinations, Tactile Hallucinations, Other - Endocrine Endocrine: absent: As Per HPI, Change in Body Appearance, Change in Libido, Cold Intolorance, Deepening of Voice, Excessive Sweating, Fatigue, Flushing, Heat Intolorance, Increase in Ring/Shoe/Hat Size, Palpitations, Polydipsia, Polyphagia, Polyuria, Other - Hematologic/Lymphatic Hematologic: absent: As Per HPI, Easy Bleeding, Easy Bruising, Lymphadenopathy, Other Past Patient History - Infectious Disease Hx of Infectious Diseases: None - Past Medical History & Family History Past Medical History?: No - Past Social History Smoking Status: Never Smoked - ENDOCRINE/METABOLIC Other/Comment: pre diabetics - MUSCULOSKELETAL/RHEUMATOLOGICAL Hx Falls: No - GENITOURINARY/GYNECOLOGICAL Other/Comment: kidney stones - PSYCHIATRIC Hx Substance Use: No - SURGICAL HISTORY Hx Surgeries: No - ANESTHESIA Hx Anesthesia: No Meds Allergies/Adverse Reactions: Allergies Allergy/AdvReac Type Severity Reaction Status Date / Time No Known Allergies Allergy Verified 12/23/13 12:54 - Medications Medications: Current Medications Famotidine (Pepcid) 20 mg IVP Q12 [facility] Last Admin: 08/15/16 09:06 Dose: 20 mg Heparin Sodium (Porcine) (Heparin) 5,000 units SC Q12 [facility] Last Admin: 08/15/16 09:07 Dose: 5,000 units Imipenem/Cilastatin Sodium 500 (mg/ Sodium Chloride) 100 mls @ 100 mls/hr IV Q6H [facility] Last Admin: 08/15/16 13:16 Dose: 100 mls/hr Sodium Chloride (Sodium Chloride 0.9%) 1,000 mls @ 150 mls/hr IV .Q6H40M [facility] Last Admin: 08/15/16 13:16 Dose: 150 mls/hr Ketorolac Tromethamine (Toradol) 30 mg IVP Q8H PRN PRN Reason: Pain, moderate (4-7) Morphine Sulfate (Morphine) 4 mg IVP Q4 PRN PRN Reason: pain Last Admin: 08/13/16 03:27 Dose: 4 mg Ondansetron HCl (Zofran Inj) 4 mg IVP Q8H PRN PRN Reason: Nausea/Vomiting Physical Exam - Constitutional Appears: Non-toxic, Chronically Ill - Head Exam Head Exam: ATRAUMATIC, NORMAL INSPECTION, NORMOCEPHALIC - Eye Exam Eye Exam: EOMI, PERRL. absent: Scleral icterus - ENT Exam ENT Exam: Mucous Membranes Dry, Normal External Ear Exam, Normal Oropharynx - Neck Exam Neck exam: Negative for: Lymphadenopathy, Thyromegaly - Respiratory Exam Respiratory Exam: Decreased Breath Sounds, Clear to Auscultation Bilateral - Cardiovascular Exam Cardiovascular Exam: REGULAR RHYTHM, +S1, +S2 - GI/Abdominal Exam GI & Abdominal Exam: Diminished Bowel Sounds, Soft. absent: Tenderness - Exam Exam: NORMAL INSPECTION - Extremities Exam Extremities exam: Positive for: pedal pulses present. Negative for: calf tenderness, pedal edema, tenderness - Back Exam Back exam: CVA tenderness (L). absent: CVA tenderness (R), paraspinal tenderness - Neurological Exam Neurological exam: Alert, CN II-XII Intact, Oriented x3, Reflexes Normal - Psychiatric Exam Psychiatric exam: Normal Mood - Skin Skin Exam: Dry, Intact Results - Vital Signs Recent Vital Signs: Last Vital Signs Temp 98.7 F 07/03/17 04:00 Pulse 64 08/15/16 03:10 Resp 13 08/15/16 03:10 BP 123/78 08/15/16 03:00 Pulse Ox 99 08/14/16 10:35 - Labs Result Diagrams: 08/15/16 12:49 08/15/16 12:49 Labs: Laboratory Results - last 24 hr 08/15/16 08/15/16 08/15/16 11:40 12:49 12:49 WBC 11.7 H RBC 4.29 Hgb 10.1 L Hct 31.8 L MCV 74.1 L MCH 23.5 L MCHC 31.7 L RDW 18.2 H Plt Count 238 MPV 8.4 Neut % (Auto) 71.4 Lymph % (Auto) 17.6 L [place] % (Auto) 9.8 Eos % (Auto) 0.8 Baso % (Auto) 0.4 Neut # 8.3 H Lymph # 2.1 [place] # 1.1 H Eos # 0.1 Baso # 0.0 Sodium 138 Potassium 3.6 Chloride 103 Carbon Dioxide 24 Anion Gap 15 BUN 8 Creatinine 0.6 L Est GFR ( Amer) > 60 Est GFR (Non-Af Amer) > 60 Random Glucose 111 H Calcium 8.4 L Phosphorus 3.0 Magnesium 1.7 Total Bilirubin 0.4 AST 21 ALT 21 Alkaline Phosphatase 105 Total Protein 7.2 Albumin 3.2 L Globulin 4.0 H Albumin/Globulin Ratio 0.8 L Urine Color Straw Urine Clarity [place] Urine pH 7.0 Ur Specific [place] 1.008 Urine Protein Negative Urine Glucose (UA) 2+ H Urine Ketones Negative Urine Blood 3+ H Urine Nitrate Negative Urine Bilirubin Negative Urine Urobilinogen Normal Ur Leukocyte Esterase 3+ H Urine WBC (Auto) 20 H Urine RBC (Auto) 53 H Ur Squamous Epith Cells 1 Urine Bacteria Rare Assessment & Plan (1) ESBL (extended spectrum beta-lactamase) producing bacteria infection Status: Acute (2) ESBL (extended spectrum beta-lactamase) producing bacteria infection Status: Acute (3) Fever Status: Acute (4) Hydronephrosis Status: Acute (5) Pyelonephritis Status: Acute (6) Urinary tract obstruction by kidney stone Status: Acute (7) Kidney stone on left side Status: Acute - Assessment and Plan (Free Text) Assessment: cont iv rx then po for total 3 weeks
[2016-08-16] MEDS: Sodium Chloride 0.9% 1,000 ML IV SCH ×3 (01:05→17:21)
--- NOTE | 2016-08-16 09:30 | RAD ---
PROCEDURE: Intraoperative Fluoroscopy. HISTORY: LEFT HYDRONEPHROSIS FINDINGS: Fluoroscopic assistance was provided. 3.5 seconds fluoroscopy time utilized during this procedure. Radiation dose = 241.0 mGy
[2016-08-17] MEDS: Sodium Chloride 0.9% 1,000 ML IV SCH (05:12)
--- NOTE | 2016-08-17 15:54 | CP.PCM.PN ---
Subjective - Date & Time of Evaluation Date of Evaluation: 08/17/16 Time of Evaluation: 10:00 - Subjective Subjective: feeling better afeb no pain' repeat blood c/s neg ON iso for ESBL E Coli cont rx 7 days IV then PO for 14 days Objective - Vital Signs/Intake and Output Vital Signs (last 24 hours): Temp Pulse Resp BP Pulse Ox 98 F 72 19 108/65 100 08/17/16 12:00 08/17/16 12:00 08/17/16 12:00 08/17/16 12:00 08/17/16 12:00 Intake and Output: 08/17/16 08/17/16 06:59 18:59 Intake Total 1390 550 Balance 1390 550 - Medications Medications: Current Medications Famotidine (Pepcid) 20 mg IVP Q12 DA[facility] Last Admin: 08/17/16 10:24 Dose: 20 mg Imipenem/Cilastatin Sodium 500 (mg/ Sodium Chloride) 100 mls @ 100 mls/hr IV Q6H [facility] Last Admin: 08/17/16 11:04 Dose: 100 mls/hr Ondansetron HCl (Zofran Inj) 4 mg IVP Q8H PRN PRN Reason: Nausea/Vomiting - Labs Labs: 08/15/16 12:49 08/15/16 12:49 - Constitutional Appears: Non-toxic, Cachectic, Chronically Ill - Head Exam Head Exam: NORMOCEPHALIC - Eye Exam Eye Exam: PERRL. absent: Scleral icterus - ENT Exam ENT Exam: Mucous Membranes Dry, Normal External Ear Exam - Neck Exam Neck Exam: absent: Lymphadenopathy - Respiratory Exam Respiratory Exam: Decreased Breath Sounds, Rhonchi - Cardiovascular Exam Cardiovascular Exam: REGULAR RHYTHM, +S1, +S2 - GI/Abdominal Exam GI & Abdominal Exam: Distended, Soft. absent: Tenderness - Rectal Exam Rectal Exam: Deferred - Exam Exam: NORMAL INSPECTION - Extremities Exam Extremities Exam: absent: Pedal Edema Assessment and Plan (1) ESBL (extended spectrum beta-lactamase) producing bacteria infection Status: Acute (2) ESBL (extended spectrum beta-lactamase) producing bacteria infection Status: Acute (3) Fever Status: Acute (4) Hydronephrosis Status: Acute (5) Pyelonephritis Status: Acute (6) Urinary tract obstruction by kidney stone Status: Acute (7) Kidney stone on left side Status: Acute
--- NOTE | 2016-08-17 19:34 | CP.PCM.PN ---
Subjective - Date & Time of Evaluation Date of Evaluation: 08/16/16 Time of Evaluation: 19:33 - Subjective Subjective: Patient is feeling much better, no fever or chills noted. Eating better. Currently on IV fluid. On examination: Vital signs reviewed No neck vein distention noted Chest good air entry bilaterally, no wheezing or rales noted CVS regular heart sound, no murmur noted Abdomen soft, nontender. Extremities no pedal edema RECORD SYSTEMS ANALYST alert awake oriented 3, no functional neurological deficit Reason culture is negative. 45 female with history of renal colic, severe sepsis status post a stent. Continue the current treatment. IV antibiotic. Changing antibiotic and the discharge plan We'll discuss with the ID for possible Objective - Vital Signs/Intake and Output Vital Signs (last 24 hours): Temp Pulse Resp BP Pulse Ox 98 F 72 19 108/65 95 08/17/16 12:00 08/17/16 12:00 08/17/16 12:00 08/17/16 12:00 08/17/16 18:57 Intake and Output: 08/17/16 08/18/16 18:59 06:59 Intake Total 550 Balance 550 - Medications Medications: Current Medications Famotidine (Pepcid) 20 mg IVP Q12 [facility] Last Admin: 08/17/16 10:24 Dose: 20 mg Imipenem/Cilastatin Sodium 500 (mg/ Sodium Chloride) 100 mls @ 100 mls/hr IV Q6H [facility] Last Admin: 08/17/16 19:01 Dose: 100 mls/hr Ondansetron HCl (Zofran Inj) 4 mg IVP Q8H PRN PRN Reason: Nausea/Vomiting - Labs Labs: 08/15/16 12:49 08/15/16 12:49
--- NOTE | 2016-08-17 19:35 | CP.PCM.PN ---
Subjective - Date & Time of Evaluation Date of Evaluation: 08/17/16 Time of Evaluation: 19:35 - Subjective Subjective: Patient is feeling much better, no fever or chills noted. Eating better. Currently on IV fluid. On examination: Vital signs reviewed No neck vein distention noted Chest good air entry bilaterally, no wheezing or rales noted CVS regular heart sound, no murmur noted Abdomen soft, nontender. Extremities no pedal edema [employer] alert awake oriented 3, no functional neurological deficit Reason culture is negative. 45 female with history of renal colic, severe sepsis status post a stent. Continue the current treatment. IV antibiotic.We'll discuss with the ID for possible Changing antibiotic and the discharge plan Objective - Vital Signs/Intake and Output Vital Signs (last 24 hours): Temp Pulse Resp BP Pulse Ox 98 F 72 19 108/65 95 08/17/16 12:00 08/17/16 12:00 08/17/16 12:00 08/17/16 12:00 08/17/16 18:57 Intake and Output: 08/17/16 08/18/16 18:59 06:59 Intake Total 550 Balance 550 - Medications Medications: Current Medications Famotidine (Pepcid) 20 mg IVP Q12 DANA Last Admin: 08/17/16 10:24 Dose: 20 mg Imipenem/Cilastatin Sodium 500 (mg/ Sodium Chloride) 100 mls @ 100 mls/hr IV Q6H DANA Last Admin: 08/17/16 19:01 Dose: 100 mls/hr Ondansetron HCl (Zofran Inj) 4 mg IVP Q8H PRN PRN Reason: Nausea/Vomiting - Labs Labs: 08/15/16 12:49 08/15/16 12:49
--- NOTE | 2016-08-18 18:02 | CP.PCM.PN ---
Subjective - Date & Time of Evaluation Date of Evaluation: 08/18/16 Time of Evaluation: 08:00 - Subjective Subjective: afeb no pain' repeat blood c/s neg ON iso for ESBL E Coli cont rx 7 days IV then PO for 14 days Objective - Vital Signs/Intake and Output Vital Signs (last 24 hours): Temp Pulse Resp BP Pulse Ox 98.2 F 79 20 113/73 95 08/18/16 16:14 08/18/16 16:14 08/18/16 16:14 08/18/16 16:14 08/18/16 16:14 Intake and Output: 08/18/16 08/18/16 06:59 18:59 Intake Total 200 Output Total 2900 Balance -2700 - Medications Medications: Current Medications Famotidine (Pepcid) 20 mg IVP Q12 DANA Last Admin: 08/18/16 09:53 Dose: 20 mg Imipenem/Cilastatin Sodium 500 (mg/ Sodium Chloride) 100 mls @ 100 mls/hr IV Q6H DANA Last Admin: 08/18/16 13:22 Dose: 100 mls/hr Ondansetron HCl (Zofran Inj) 4 mg IVP Q8H PRN PRN Reason: Nausea/Vomiting - Labs Labs: 08/15/16 12:49 08/15/16 12:49 Assessment and Plan (1) ESBL (extended spectrum beta-lactamase) producing bacteria infection Status: Acute (2) ESBL (extended spectrum beta-lactamase) producing bacteria infection Status: Acute (3) Fever Status: Acute (4) Hydronephrosis Status: Acute (5) Pyelonephritis Status: Acute (6) Urinary tract obstruction by kidney stone Status: Acute (7) Kidney stone on left side Status: Acute
--- NOTE | 2016-08-19 15:39 | CP.PCM.PN ---
Subjective - Date & Time of Evaluation Date of Evaluation: 08/19/16 Time of Evaluation: 08:00 - Subjective Subjective: AFEB DENIES FEVER/PAIN NAD ON IV RX AFTER 7 DAYS CAN SWITCH TO PO R=TO COMPLETE 14 DAYS Objective - Vital Signs/Intake and Output Vital Signs (last 24 hours): Temp Pulse Resp BP Pulse Ox 97.8 F 71 20 104/65 96 08/19/16 08:00 08/19/16 08:00 08/19/16 08:00 08/19/16 08:00 08/19/16 08:00 - Medications Medications: Current Medications Famotidine (Pepcid) 20 mg IVP Q12 [facility] Last Admin: 08/19/16 11:50 Dose: 20 mg Imipenem/Cilastatin Sodium 500 (mg/ Sodium Chloride) 100 mls @ 100 mls/hr IV Q6H [facility] Last Admin: 08/19/16 11:50 Dose: 100 mls/hr Ondansetron HCl (Zofran Inj) 4 mg IVP Q8H PRN PRN Reason: Nausea/Vomiting - Labs Labs: 08/15/16 12:49 08/15/16 12:49 - Constitutional Appears: Non-toxic, Chronically Ill - Head Exam Head Exam: NORMOCEPHALIC - Eye Exam Eye Exam: PERRL. absent: Scleral icterus - ENT Exam ENT Exam: Mucous Membranes Dry, Normal External Ear Exam - Neck Exam Neck Exam: absent: Lymphadenopathy - Respiratory Exam Respiratory Exam: Decreased Breath Sounds - Cardiovascular Exam Cardiovascular Exam: REGULAR RHYTHM - GI/Abdominal Exam GI & Abdominal Exam: Distended, Soft. absent: Tenderness - Rectal Exam Rectal Exam: Deferred Assessment and Plan (1) ESBL (extended spectrum beta-lactamase) producing bacteria infection Status: Acute (2) ESBL (extended spectrum beta-lactamase) producing bacteria infection Status: Acute (3) Fever Status: Acute (4) Hydronephrosis Status: Acute (5) Pyelonephritis Status: Acute (6) Urinary tract obstruction by kidney stone Status: Acute (7) Kidney stone on left side Status: Acute
[2016-08-22 01:49] VITALS: O2SAT 98
[2016-08-22 08:44] VITALS: RESP 20
--- NOTE | 2016-08-22 13:20 | CP.PCM.PN ---
Subjective - Date & Time of Evaluation Date of Evaluation: 08/22/16 Time of Evaluation: 13:00 - Subjective Subjective: Pt seen today , states feels better, denies any abdominal pain, N/V/D, dysuria , hematuria a febrile Objective - Vital Signs/Intake and Output Vital Signs (last 24 hours): Temp Pulse Resp BP Pulse Ox 97.7 F 66 20 119/79 98 08/22/16 07:00 08/22/16 07:00 08/22/16 07:00 08/22/16 07:00 08/22/16 07:00 - Medications Medications: Current Medications Famotidine (Pepcid) 20 mg PO Q12 [facility] Last Admin: 08/22/16 10:14 Dose: 20 mg Imipenem/Cilastatin Sodium 500 (mg/ Sodium Chloride) 100 mls @ 100 mls/hr IV Q6H [facility] Last Admin: 08/22/16 13:02 Dose: 100 mls/hr Ondansetron HCl (Zofran Inj) 4 mg IVP Q8H PRN PRN Reason: Nausea/Vomiting - Labs Labs: 08/15/16 12:49 08/15/16 12:49 Assessment and Plan - Assessment and Plan (Free Text) Assessment: a/p 45 yr old female admitted for Urinary tract obstruction by kidney stone, Fever, Pyelonephritis, Hydronephrosis s/p stent left by Dr. Maguire blood- culture- E coli- and pt treated with imepenum urnine culture - Klebesella Pneumonia Repeat blood culture - negative for 5 day s As per Dr. Gardner, after 7 days of IV can be switched to po to complete 14 day s D/W Dr. Davis , cleared for discharge home today and f/u with [facility] raghu Maguire in 10 days Discharge plan discussed with patient vi coronary care unit nurse, who understands and agrees with plan Pt instructed to returns to ED if symptoms returns or any other concerning symptoms
[2016-08-22 16:13] VITALS: BP 133/84; PULSE 83; TEMP 98.2
--- NOTE | 2016-08-27 03:14 | OP ---
DESCRIPTION OF PROCEDURE: The patient had obstructing left ureteral calculus, brought to the OR, prepped and draped in the usual manner. After general anesthesia given, #21 cystourethroscope wire was inserted to left ureter into the kidney. A double-J stent was then placed over the wire and the wire removed. The stent had in good position. Maximo Maguire MD
--- NOTE | 2016-08-27 06:32 | HP ---
HISTORY OF PRESENT ILLNESS: This is a 45-year-old female seen through the emergency room with left flank pain. Patient had a CAT scan, which revealed obstructing left ureteral calculus. There was no previous history of calculus. The patient otherwise has no medical history. Of consequence, she knows herself very clearly. PHYSICAL EXAMINATION LUNGS: Clear to auscultation and percussion. ABDOMEN: Soft with mild left CVA tenderness. EXTREMITIES: Lower extremities were normal. Patient is prepped *------* for obstructing ureteral calculus. Maximo Maguire MD cc:
--- NOTE | 2016-08-29 16:56 | DS ---
After admission with a stent insertion the patient became septic; was seen in ICU and treated from [place] with Dr. Gardner with multiple antibiotics. Ultimately, after several days the fever subsided. The patient is stable and now prepared for a to address the obstructing left ureteral calculus. Maximo Maguire MD
== END 2016-08-22 21:40 | disposition home or self-care (01) | DRG 901 ==
LOC: C.ER 19:22 → C.9E 20:52 → C.3T 22:01 → C.9I 08-13 15:40 → C.5T 08-18 06:29
PROVIDERS: ADMIT Urology; ATTEND Urology
PROC: 0T778DZ Dilation of Left Ureter with Intraluminal Device, Via Natural or Artificial Opening Endoscopic (ICD-10-PCS; principal; 2016-08-13 11:45)
DX: A41.50 Gram-negative sepsis, unspecified (principal); I10 Essential (primary) hypertension; N13.6 Pyonephrosis; R65.20 Severe sepsis without septic shock; E78.5 Hyperlipidemia, unspecified; R73.03 Prediabetes; E78.00 Pure hypercholesterolemia, unspecified; M54.30 Sciatica, unspecified side; Z87.442 Personal history of urinary calculi